=== PATIENT | male | born 1940 | race Caucasian/White ===

== ENCOUNTER 2017-11-23 10:38 | Emergency (ER) | payer MEDICARE, BC ==
--- NOTE | 2017-11-23 12:16 | EDM.PDOC ---
ED HPI GENERAL MEDICAL PROBLEM - General Chief Complaint: Upper Extremity Injury/Pain Stated Complaint: RT SHOULDER Time Seen by Provider: 11/23/17 11:54 Source of Information: Reports: Patient, RN, RN Notes Reviewed History Limitations: Reports: No Limitations - History of Present Illness INITIAL COMMENTS - FREE TEXT/NARRATIVE: Patient presents to the ER with a complaint that he fell on . States he tripped and had his hands full. Unable to catch himself and landed on the shoulder on frozen ground. Mobility has been improving over the pasts few days. Pain stays the same as a dull ache. States he always has numbness and tingling in arms. Duration: Constant Location: Reports: Upper Extremity, Right Quality: Reports: Ache Severity: Moderate Improves with: Reports: None Worsens with: Reports: None Associated Symptoms: Reports: No Other Symptoms Right Shoulder Pain Score (Numeric/FACES): 2 - Related Data Allergies Allergy/AdvReac Type Severity Reaction Status Date / Time No Known Allergies Allergy Verified 11/23/17 11:00 Home Meds: Home Meds Allopurinol [Zyloprim] 300 mg PO DAILY 04/30/16 [History] Aspirin 81 mg PO DAILY 04/30/16 [History] Hydrochlorothiazide 12.5 mg PO DAILY 04/30/16 [History] Lisinopril 40 mg PO DAILY 04/30/16 [History] Metoprolol Succinate [Toprol XL] 50 mg PO DAILY 04/30/16 [History] traMADol [Ultram] 50 mg PO Q8H 04/30/16 [History] Furosemide [Furosemide] 20 mg PO DAILY 11/23/17 [History] Latanoprost [Latanoprost] 1 drop EYEBOTH DAILY 11/23/17 [History] Timolol Maleate 1 drop EYEBOTH DAILY 11/23/17 [History] Warfarin [Coumadin] 5 mg PO ASDIRECTED 11/23/17 [History] Warfarin [Coumadin] 10 mg PO ASDIRECTED 11/23/17 [History] atorvaSTATin [Lipitor] 80 mg PO DAILY 11/23/17 [History] Past Medical History HEENT History: Reports: Hard of Hearing, Impaired Vision Other HEENT History: wears glasses Cardiovascular History: Reports: High Cholesterol, Hypertension, Pacemaker, Stents Respiratory History: Reports: None Gastrointestinal History: Reports: None Genitourinary History: Reports: None Neurological History: Reports: None Psychiatric History: Reports: None Endocrine/Metabolic History: Reports: None Hematologic History: Reports: None Immunologic History: Reports: None Oncologic (Cancer) History: Reports: None Dermatologic History: Reports: None - Infectious Disease History Infectious Disease History: Reports: Chicken Pox, Mumps - Past Surgical History GI Surgical History: Reports: Appendectomy Musculoskeletal Surgical History: Reports: Knee Replacement Other Musculoskeletal Surgeries/Procedures:: foot built up Social & Family History - Tobacco Use Smoking Status *Q: Former Smoker Years of Tobacco use: 20 Packs/Tins Daily: 3 Used Tobacco, but Quit: Yes Month Tobacco Last Used: november Second Hand Smoke Exposure: No - Caffeine Use Caffeine Use: Reports: Coffee - Recreational Drug Use Recreational Drug Use: No Review of Systems - Review of Systems Review Of Systems: ROS reveals no pertinent complaints other than HPI. ED EXAM, GENERAL - Physical Exam Exam: See Below Exam Limited By: No Limitations General Appearance: Alert, WD/WN, No Apparent Distress Eye Exam: Bilateral Eye: Normal Inspection Ears: Normal External Exam, Normal Canal, Hearing Grossly Normal, Normal TMs Nose: Normal Inspection, Normal Mucosa, No Blood Throat/Mouth: Normal Inspection, Normal Lips, Normal Teeth, Normal Gums, Normal Oropharynx, Normal Voice, No Airway Compromise Head: Atraumatic, Normocephalic Neck: Normal Inspection, Supple, Non-Tender, Full Range of Motion Respiratory/Chest: Crackles (bases bilateral) Cardiovascular: Systolic Murmur GI/Abdominal: Normal Bowel Sounds, Soft, Non-Tender, No Organomegaly, No Distention, No Abnormal Bruit, No Mass (Male) Exam: Deferred Rectal (Males) Exam: Deferred Back Exam: Normal Inspection (decreased range of motion right arm/shoulder.), Full Range of Motion, NT Extremities: Normal Inspection, Normal Range of Motion, Non-Tender, Normal Capillary Refill, No Pedal Edema Neurological: Alert, Oriented, CN II-XII Intact, Normal Cognition, Normal Gait, Normal Reflexes, No Motor/Sensory Deficits Psychiatric: Normal Affect, Normal Mood Skin Exam: Warm, Dry, Intact, Normal Color, No Rash Lymphatic: No Adenopathy Course - Vital Signs Last Recorded V/S: Last Vital Signs Temp 98.0 F 11/23/17 12:14 Pulse 61 11/23/17 12:14 Resp 16 11/23/17 12:14 BP 144/83 H 11/23/17 12:14 Pulse Ox 98 11/23/17 12:14 - Orders/Labs/Meds Orders: Active Orders 24 hr Category Date Time Status Shoulder 1V Rt [CR] Urgent Exams 11/23/17 12:41 Ordered Shoulder Comp Rt [CR] Urgent Exams 11/23/17 11:28 Taken - Radiology Interpretation Free Text/Narrative:: Right shoulder x-ray: No acute fracture identified. Cannot confirm glenohumeral alignment as above. Degenerative changes as described. Apparent osteopenia. See Rad report. X-ray right shoulder complete: Third image demonstrates the glenohumeral joint to be normally aligned. See Rad report. Departure - Departure Time of Disposition: 13:19 Disposition: Home, Self-Care 01 Condition: Fair Clinical Impression: Sprain of shoulder Qualifiers: Encounter type: initial encounter Shoulder sprain type: unspecified sprain Laterality: right Qualified Code(s): S43.401A - Unspecified sprain of right shoulder joint, initial encounter - Discharge Information Instructions: Shoulder Pain, [id number] Forms: ED Department Discharge Additional Instructions: Rest, ice, heat Use your Tramadol for pain control Follow up with your primary care facility - My Orders Last 24 Hours: My Active Orders 11/23/17 11:28 Shoulder Comp Rt [CR] Urgent 11/23/17 12:41 Shoulder 1V Rt [CR] Urgent - Assessment/Plan Last 24 Hours: My Active Orders 11/23/17 11:28 Shoulder Comp Rt [CR] Urgent 11/23/17 12:41 Shoulder 1V Rt [CR] Urgent
[2017-11-23 13:26] VITALS: BP 147/77
== END 2017-11-23 13:27 | disposition home or self-care (01) ==
LOC: DL.ED 10:38
DX: S43.401A Unspecified sprain of right shoulder joint, initial encounter (principal); E78.00 Pure hypercholesterolemia, unspecified; I10 Essential (primary) hypertension; Z79.899 Other long term (current) drug therapy; Z79.82 Long term (current) use of aspirin; Z79.01 Long term (current) use of anticoagulants; Z87.891 Personal history of nicotine dependence; W19.XXXA Unspecified fall, initial encounter
CPT/HCPCS: 73030-RT; 99283; 99284